=== PATIENT | male | born 1960 | race Caucasian/White ===

== ENCOUNTER → 2018-11-21 13:27 | Outpatient (CLI) | payer BC | END | disposition home or self-care (01) | LOC: D.CT 11-16 15:00 | DX: R93.89 Abnormal findings on diagnostic imaging of other specified body structures (principal) ==

== ENCOUNTER → 2020-04-20 19:23 | Outpatient (CLI) | payer BC | END | disposition home or self-care (01) | LOC: D.LABREF 19:23 | PROVIDERS: ATTEND Orthopaedic Surgery | DX: M17.11 Unilateral primary osteoarthritis, right knee (principal) ==

== ENCOUNTER 2020-04-21 16:36 | Inpatient (IN) | payer BC ==
[~2020-04-21] VITALS: Ht 193 cm; Wt 127.3 kg
[2020-05-05] MEDS ORDERED: LISINOPRIL20 MG PO (10:54)
[2020-05-05] MEDS ORDERED: TIROSINT137 MCG PO (10:54)
[2020-05-05] MEDS ORDERED: ULTRAM50 MG PO (10:55)
[2020-05-05] MEDS ORDERED: NORVASC5 MG PO (10:55)
[2020-05-05] MEDS ORDERED: ZYRTEC D PO (10:55)
[2020-05-05] MEDS ORDERED: MOBIC7.5 MG PO (10:56)
[2020-05-06 09:13] LABS: CALCIUM 9.4 mg/dL (8.5-10.1); CARBON DIOXIDE 31.2 mmol/L (21.0-32.0); CREATININE - SERUM 1.2 mg/dL (0.6-1.3); POTASSIUM - SERUM 4.2 mmol/L (3.5-5.1)
[2020-05-06 09:19] LABS: APTT 25.7 SECONDS (22.8-39.4); INR 0.91 (0.85-1.17); PROTIME 12.3 SECONDS (11.6-15.0)
[2020-05-06 09:34] LABS: BILIRUBIN NEGATIVE (NEGATIVE); GLUCOSE NEGATIVE (NEGATIVE); KETONE NEGATIVE (NEGATIVE); NITRITE NEGATIVE (NEGATIVE); UROBILINOGEN NORMAL (NORMAL)
[2020-05-06 09:35] LABS: BASOPHILS 0.6 % (0-2); EOSINOPHILS 5.8 % (0-7); HEMATOCRIT 44.1 % (42.0-54.0); HEMOGLOBIN 14.6 g/dL (13.5-17.5); IMMATURE GRANULOCYTES 0.3 % (0-5); LYMPHOCYTES 19.5 % (15-50); MCH 29.6 pg (26.0-34.0); MCHC 33.1 g/dL (31.0-37.0); MCV 89.5 fL (80.0-100.0); MEAN PLATELET VOLUME 8.9 fL (7.4-10.4); MONOCYTES 7.9 % (2-11); NEUTROPHILS 65.9 % (40-80); PLATELET COUNT 295 10x3/uL (130-400); RBC 4.93 10x6/uL (4.20-6.10); RDW 13.8 % (11.5-14.5); WBC 9.5 10x3/uL (4.8-10.8)
[2020-05-12] VITALS (11 sets, daily range): BP systolic 116–144; BP diastolic 65–87; Ht 193 cm; Wt 127.3 kg
[2020-05-12] MEDS ORDERED: PRILOSEC (07:44)
--- NOTE | 2020-05-12 09:30 | NUR ---
0910-HIBICLENSE/ALCOHOL PREP PRIOR TO CHLORAPREP
--- NOTE | 2020-05-12 12:35 | NUR ---
RECEIVED TO ROOM 1209 VIA BED FROM PACU. A/O X3. C/O PAIN TO RIGHT KNEE LEVEL 10. WILL MONITOR. SKIN INTACT WITHOUT REDNESS EXCEPT INCISION TO RIGHT KNEE WHICH HAS A DRY INTACT DRESSING IN PLACE. VSS. ROUSES EASILY TO VERBAL STIMULATION.
--- NOTE | 2020-05-12 13:20 | NUR ---
CONTINUES TO C/O OF INTENSE PAIN LEVEL 10. GIVEN 15MG TORADOL SLOW IVP FOR SAME. WILL MONITOR.
--- NOTE | 2020-05-12 13:45 | NUR ---
UP WITH PT. NO C/O INCREASED PAIN WITH ACTIVITY.
--- NOTE | 2020-05-12 15:40 | NUR ---
RESTING QUIETLY WITH EYES CLOSED. VSS.
--- NOTE | 2020-05-12 18:00 | NUR ---
UP TO BR WITH ONE PERSON MIN ASSIST. VOIDED CLEAR YELLOW URINE, APPROX 300CC. REPOSITIONED IN BED FOR COMFORT. CPM IN PLACE TO RIGHT KNEE. NO CHANGES NOTED. GIVEN 10MG OXY WITH 50MG VISTARIL PO FOR PAIN MANAGEMENT WHILE ON CPM.
--- NOTE | 2020-05-12 19:05 | NUR ---
PATIENT RESTING IN BED WITH NO S/S OF DISTRESS. GUEST AT BEDSIDE. PATIENT DENIES NEEDS AT THIS TIME. BED IN LOWEST POSITION AND CALL LIGHT WITHIN REACH. ENCOURAGED THE PATIENT TO CALL IF HE HAS NEEDS. WILL CONTINUE TO MONITOR.
--- NOTE | 2020-05-12 20:51 | NUR ---
ADMINISTERED MEDS PER ORDERS. PATIENT DENIES NEEDS. ENCOURGED PATIENT TO CALL. WILL CONTINUE TO MONITOR.
--- NOTE | 2020-05-12 21:25 | NUR ---
TOOK PATIENT OFF CPM MACHINE
--- NOTE | 2020-05-12 22:00 | NUR ---
ASSISTED PATIENT TO AND FROM RESTROOM. PATIENT VOIDED AND DENIES FURTHER NEEDS.
[2020-05-13 00:09] VITALS: BP 125/66
--- NOTE | 2020-05-13 01:45 | NUR ---
ASSISTED PATIENT TO AND FROM RESTROOM.
[2020-05-13 04:21] VITALS: BP 137/78
--- NOTE | 2020-05-13 04:50 | NUR ---
PLACED PATIENT ON CPM TO RIGHT KNEE
--- NOTE | 2020-05-13 07:15 | NUR ---
PT SLEEPING, AROUSED EASILY TO VOICE, DENIES NEEDS, BED LOWEST POSITION, CALL LIGHT IN REACH, BREATHING EVEN UNLABORED, LUNGS CTA, A&O X3, PEDAL PULSES BILATERALLY PALPABLE, HELPED PT TO BATHROOM WITH WALKER, STANDBY ASSIST ONLY. WILL CONTINUE TO MONITOR.
[2020-05-13 07:19] LABS: HEMATOCRIT 38.2 % (42.0-54.0); HEMOGLOBIN 12.3 g/dL (13.5-17.5); MCH 29.1 pg (26.0-34.0); MCHC 32.2 g/dL (31.0-37.0); MCV 90.5 fL (80.0-100.0); MEAN PLATELET VOLUME 9.1 fL (7.4-10.4); RBC 4.22 10x6/uL (4.20-6.10); RDW 13.8 % (11.5-14.5); WBC 13.5 10x3/uL (4.8-10.8)
[2020-05-13 08:17] VITALS: BP 134/66
--- NOTE | 2020-05-13 09:04 | MORECARE ---
CASE MANAGEMENT DISCHARGE SUMMARY PATIENT: CHRISTIANO TAYLOR UNIT: [id number] ADM DATE: 05/12/20 AGE: 60 : 56 SEX: M ROOM/BED: D.1209 AUTHOR: JOSIAS COELLO PHYSICIAN: REFERRING PHYSICIAN: JEFFRY BLANK DO DATE OF SERVICE: 05/13/20 Discharge Plan Patient Name: CHRISTIANO TAYLOR [facility] [facility] 1960 Planned Disposition: Home or Self Care Anticipated Discharge Date: Discharge Date: Expected LOS: Initial Reviewer: [email or web address] Initial Review Date: 05/12/2020 Generated: 05/13/20 10:04 am DCPIA - Discharge Planning Initial Assessment Updated by [email or web address]: Amita Mares on 05/13/20 9:02 am * Is the patient Alert and Oriented? Yes * How many steps to enter\exit or inside your home? * [facility] * [facility]acy [facility] * Preadmission Environment Home with Family * ADLs Independent * Equipment None * List name and contact numbers for known caregivers / representatives who currently or will assist patient after discharge: CLAUDE (SPOUSE) [phone] * Verbal permission to speak to the caregivers and representatives has been obtained from the patient. N/A * Community resources currently utilized None * Additional services required to return to the preadmission environment? Yes * Can the patient safely return to the preadmission environment? Yes * Has this patient been hospitalized within the prior 30 days at any hospital? No Patient Name: CHRISTIANO TAYLOR Page 60421 at 0904 All edits/amendments must be made on the electronic document DICTATION DATE: 05/13/20903 LAYER UP: LIAM 05/13/20903 RPT#: [id number] DC DATE: STATUS: ADM IN [facility] [address] [place] [address] END OF REPORT
--- NOTE | 2020-05-13 09:11 | MORECARE ---
CASE MANAGEMENT DISCHARGE SUMMARY PATIENT: CHRISTIANO TAYLOR UNIT: [id number] ADM DATE: 05/12/20 AGE: 60 : 56 SEX: M ROOM/BED: D.1209 AUTHOR: JOSIAS COELLO PHYSICIAN: REFERRING PHYSICIAN: JEFFRY BLANK DO DATE OF SERVICE: 05/13/20 Discharge Plan Patient Name: CHRISTIANO TAYLOR Facility: [facility]:[place] : 1960 Planned Disposition: Home or Self Care Anticipated Discharge Date: Discharge Date: Expected LOS: Initial Reviewer: [email or web address] Initial Review Date: 05/12/2020 Generated: 05/13/20 10:11 am Comments DCP- Discharge Planning Updated by [email or web address]: Amita Mares on 05/13/20 8:[address] Barry with [employer], has his DME order and will deliver DME to patient prior to DC DCP- Discharge Planning Updated by [email or web address]: Amita Mares on 05/13/20 8:[address] Patient Name: CHRISTIANO TAYLOR Admission Status: Elective Accout number: [id number] Admission Date: 05-12-2020 : 1960 Admission Diagnosis: Attending: JEFFRY BLANK Current LOS: 1 Anticipated DC Date: Planned Disposition: Home or Self Care Primary Insurance: [email or web address] [facility] EXCHANGE Discharge Planning Comments: CM met with patient to complete initial dc planning assessment. CM educated patient on the CM role and verbal consent given by patient to complete assessment. Patient lives at home with his spouse where he is independent with his care. At discharge patient plans to return home and feels this is a safe discharge. CM discussed availability of home health, rehab services, and medical equipment. He does use a CPAP, but orders all his supplies online. He would like to do his OP PT at [facility], CM will set that appointment prior to discharge. He does not have any DME, but stated that someone called him about delivering his DME after surgery. I will check with Barry with [employer] to see if he has the DME order. Patient denied known discharge needs at this time. CM will continue to follow and will assist as needed with dc plans/needs. Education Faculty Member: Amita Mares DCPIA - Discharge Planning Initial Assessment Updated by [email or web address]: Amita Mares on 05/13/20 9:02 am * Is the patient Alert and Oriented? Yes * How many steps to enter\exit or inside your home? * [facility]CP [facility] * [facility] * Preadmission Environment Home with Family * ADLs Independent * Equipment None * List name and contact numbers for known caregivers / representatives who currently or will assist patient after discharge: CLAUDE (SPOUSE) [phone] * Verbal permission to speak to the caregivers and representatives has been obtained from the patient. N/A * Community resources currently utilized None * Additional services required to return to the preadmission environment? Yes * Can the patient safely return to the preadmission environment? Yes * Has this patient been hospitalized within the prior 30 days at any hospital? No Last DP export: 05/13/20 8:04 am Patient Name: CHRISTIANO TAYLOR Page 29471 at 0911 All edits/amendments must be made on the electronic document DICTATION DATE: 05/13/20910 HEAT TREAT FURNACE OPERATOR: LIAM 05/13/20910 RPT#: [id number] DC DATE: STATUS: ADM IN [facility] [address] [place] [address] END OF REPORT
--- NOTE | 2020-05-13 10:05 | NUR ---
STANDBY ASSIST TO BATHROOM AND BACK TO BED
--- NOTE | 2020-05-13 10:44 | MORECARE ---
CASE MANAGEMENT DISCHARGE SUMMARY PATIENT: CHRISTIANO TAYLOR UNIT: [id number] ADM DATE: 05/12/20 AGE: 60 : 56 SEX: M ROOM/BED: D.1209 AUTHOR: MODEDOC PHYSICIAN: REFERRING PHYSICIAN: JEFFRY BLANK DO DATE OF SERVICE: 05/13/20 Discharge Plan Patient Name: CHRISTIANO TAYLOR Facility: [facility]:[place] : 1960 Planned Disposition: Home or Self Care Anticipated Discharge Date: Discharge Date: Expected LOS: Initial Reviewer: [email or web address] Initial Review Date: 05/12/2020 Generated: 05/13/20 11:43 am Comments DCP- Discharge Planning Updated by [email or web address]: Amita Mares on 05/13/20 9:[address] SPOKE WITH KAVYA AND THE PATIENT HAS AN APPOINTMENT SET FOR MondayMay AT 1:30. HE WILL GET A COPY OF THIS ORDER WITH HIS DISCHARGE PACKET DCP- Discharge Planning Updated by [email or web address]: Amita Mares on 05/13/20 8:[address] Barry with [employer], has his DME order and will deliver DME to patient prior to DC DCP- Discharge Planning Updated by [id number]: Amita Mares on 05/13/20 8:[address] Patient Name: CHRISTIANO TAYLOR Admission Status: Elective Accout number: [id number] Admission Date: 05-12-2020 : 1960 Admission Diagnosis: Attending: JEFFRY BLANK Current LOS: 1 Anticipated DC Date: Planned Disposition: Home or Self Care Primary Insurance: [employer] TH EXCHANGE Discharge Planning Comments: CM met with patient to complete initial dc planning assessment. CM educated patient on the CM role and verbal consent given by patient to complete assessment. Patient lives at home with his spouse where he is independent with his care. At discharge patient plans to return home and feels this is a safe discharge. CM discussed availability of home health, rehab services, and medical equipment. He does use a CPAP, but orders all his supplies online. He would like to do his OP PT at [facility], CM will set that appointment prior to discharge. He does not have any DME, but stated that someone called him about delivering his DME after surgery. I will check with Barry with [employer] to see if he has the DME order. Patient denied known discharge needs at this time. CM will continue to follow and will assist as needed with dc plans/needs. Communication Lecturer: Amita Mares DCPIA - Discharge Planning Initial Assessment Updated by [email or web address]: Amita Mares on 05/13/20 9:02 am * Is the patient Alert and Oriented? Yes * How many steps to enter\exit or inside your home? * [facility]CP [facility] * [facility]acy [facility] * Preadmission Environment Home with Family * ADLs Independent * Equipment None * List name and contact numbers for known caregivers / representatives who currently or will assist patient after discharge: CLAUDE (SPOUSE) [phone] * Verbal permission to speak to the caregivers and representatives has been obtained from the patient. N/A * Community resources currently utilized None * Additional services required to return to the preadmission environment? Yes * Can the patient safely return to the preadmission environment? Yes * Has this patient been hospitalized within the prior 30 days at any hospital? No Last DP export: 05/13/20 8:11 am Patient Name: CHRISTIANO TAYLOR Page 24008 at 1044 All edits/amendments must be made on the electronic document DICTATION DATE: 05/13/20 1043 SERVICE PARTS DRIVER: LIAM 05/13/20 1043 RPT#: [id number] DC DATE: STATUS: ADM IN [facility] [address] [place] [address] END OF REPORT
--- NOTE | 2020-05-13 10:44 | OP ---
PATIENT NAME: CHRISTIANO TAYLOR MEDICAL RECORD: [id number] :[birth year] LOCATION:D. D.1209 ADMISSION DATE:05/12/20 SURGEON: DEON BLANK, DATE OF OPERATION: 05/12/2020 PROCEDURE PERFORMED: Right total knee arthroplasty. PREOPERATIVE DIAGNOSIS: Right knee osteoarthritis. POSTOPERATIVE DIAGNOSIS: Right knee osteoarthritis. INDICATIONS: Mr. Taylor is a 60-year-old male who has had right knee pain for quite some time. He has been dealing with it and trying all manner of nonoperative treatment including injections, physical therapy to no avail and is up to the point where it is affecting his activities of daily living. He cannot do things he like to do and he wants something to be done surgically. I informed him of the risks including infection, bleeding, damage to nerves or vessels, failure of hardware, continued pain, arthrofibrosis, blood clots, fracture, and even and he signed the consent. SURGEON: Deon Blank MD DESCRIPTION OF SURGERY: The patient received a block by anesthesia in preoperative area, was taken to the operative suite, given 80 mg gentamicin and 2 grams of Ancef after a test dose because of his PENICILLIN ALLERGY. He did not have a reaction. He was then sedated and LMA was placed and given a gram of TXA as well. Right lower extremity was then prepped and draped in sterile fashion. A timeout was performed and everyone was in agreement with the correct side, site, patient, and the procedure. We then marked out the incision covered with Ioban. I then made an incision down through the skin to the capsule and then a medial parapatellar approach with a fresh 10 blade scalpel and then everted the patella and milled it down and sized to be 35. I then entered the femoral canal after removing the ACL and did a distal femur cut and then a proximal tibia cut. After doing the proximal tibia cut, I sized the femur to be 12 and put 4-in-1 cutting block on it and cut the femur and then sized the tibia to be a right H and then pinned it in and then trialed with a 10 poly, it fit very well, so I did go with that and then drilled the holes for the stems and then removed the tray and impacted the tibia. After irrigating, impacted the tibia on and the femur on as well. It fit very well and then I put a 10 trial in between and brought the knee in extension. Exposed the patella, cleaned that off and irrigated it and then put the cement after it was mixed and then holes in the patella and then on the implant and squeezed into place. Excess cement was removed. I then poured povidone-iodine 10% with 5 mL of normal saline solution in the knee and let it sit for 3 minutes and irrigated that out with over a liter of normal saline. We then put in the actual poly after irrigating one more time, 10 poly and then ranged the knee, it ranged very well. The medial congruent knee was Persona knee and it was very tight and varus valgus with an extension, flexion, and moved very well. I then put in the Brunilda and vancomycin and tobramycin powder. I then closed the capsule with #1 Vicryl in a uaoiww-tj-zaeey fashion. This was done by myself, William Levine, and Kevyn Jesus. Kevyn is a certified surgical first helper and William is first year student. I then finished closing the capsule with #1 Vicryl in a uryysx-dj-xlwzv fashion with #1 pop-offs and then the skin with 2-0 Vicryl in inverted interrupted fashion and then ZipLine placed on the knee, then dressed with Adaptic, 4 x 4s, ABD, Webril, Forest wrap, and HODA hose stocking. He was then OPERATIVE REPORT [id number] CHRISTIANO TAYLOR awakened and taken to recovery in stable condition. Blood loss approximately 200 mL. COMPLICATIONS: None. TRANSINT:[id number] Voice Confirmation ID: [id number] DOCUMENT ID: [id number] DEON BLANK DO at 1044 CC: [id number] DICTATION DATE: 05/12/20 1343 ALUM MIXER: 05/13/[address] [facility] [address] [place] [address]
[2020-05-13] MEDS ORDERED: ELIQUIS2.5 MG PO (12:03)
[2020-05-13] MEDS ORDERED: oxyCODONE IR PO (12:03)
[2020-05-13] MEDS ORDERED: VISTARIL50 MG PO (12:04)
--- NOTE | 2020-05-13 13:31 | NUR ---
DISHARGE INSTRUCTIONS AND PRESCRIPTIONS GIVEN TO PT AND , FOLLOW UP APPOINTMENTS, IV REMOVED FROM RFA CATHETER INTACT, RIGHT KNEE BANDAGE CLEANED WITH WOUND DAT[employer]AS[employer] SOFTWARE CONSULTANT, BANDAGE REAPPLIED AND WRAP WITH SAGE WRAP. QUESTIONS ANSWERED, DISCHARGED IN WC.
--- NOTE | 2020-05-14 16:11 | MORECARE ---
CASE MANAGEMENT DISCHARGE SUMMARY PATIENT: CHRISTIANO TAYLOR UNIT: [id number] ADM DATE: 05/12/20 AGE: 60 : 56 SEX: M ROOM/BED: D.1209 AUTHOR: MODE,DOC PHYSICIAN: REFERRING PHYSICIAN: JEFFRY BLANK DO DATE OF SERVICE: 05/14/20 Discharge Plan Patient Name: CHRISTIANO TAYLOR Facility: [facility]:[place] : 1960 Planned Disposition: Home or Self Care Anticipated Discharge Date: Discharge Date: 05/13/2020 Expected LOS: Initial Reviewer: [email or web address] Initial Review Date: 05/12/2020 Generated: 05/14/20 5:11 pm Comments DCP- Discharge Planning Updated by [id number]: Amita Mares on 05/13/20 9:[address] SPOKE WITH KAVYA AND THE PATIENT HAS AN APPOINTMENT SET FOR MondayMay AT 1:30. HE WILL GET A COPY OF THIS ORDER WITH HIS DISCHARGE PACKET DCP- Discharge Planning Updated by [email or web address]: Amita Mares on 05/13/20 8:[address] Barry with [employer], has his DME order and will deliver DME to patient prior to DC DCP- Discharge Planning Updated by [email or web address]: Amita Mares on 05/13/20 8:[address] Patient Name: CHRISTIANO TAYLOR Admission Status: Elective Accout number: [id number] Admission Date: 05-12-2020 : 1960 Admission Diagnosis: Attending: JEFFRY BLANK Current LOS: 1 Anticipated DC Date: Planned Disposition: Home or Self Care Primary Insurance: [employer] EXCH[employer] Discharge Planning Comments: CM met with patient to complete initial dc planning assessment. CM educated patient on the CM role and verbal consent given by patient to complete assessment. Patient lives at home with his spouse where he is independent with his care. At discharge patient plans to return home and feels this is a safe discharge. CM discussed availability of home health, rehab services, and medical equipment. He does use a CPAP, but orders all his supplies online. He would like to do his OP PT at [facility], CM will set that appointment prior to discharge. He does not have any DME, but stated that someone called him about delivering his DME after surgery. I will check with Barry with [employer] to see if he has the DME order. Patient denied known discharge needs at this time. CM will continue to follow and will assist as needed with dc plans/needs. Auto Servicer: Amita Mares DCPIA - Discharge Planning Initial Assessment Updated by [email or web address]: Amita Mares on 05/13/20 9:02 am * Is the patient Alert and Oriented? Yes * How many steps to enter\exit or inside your home? * [facility]CP [facility] * Pharmacy [facility] * Preadmission Environment Home with Family * ADLs Independent * Equipment None * List name and contact numbers for known caregivers / representatives who currently or will assist patient after discharge: CLAUDE (SPOUSE) [phone] * Verbal permission to speak to the caregivers and representatives has been obtained from the patient. N/A * Community resources currently utilized None * Additional services required to return to the preadmission environment? Yes * Can the patient safely return to the preadmission environment? Yes * Has this patient been hospitalized within the prior 30 days at any hospital? No Last DP export: 05/13/20 9:44 am Patient Name: CHRISTIANO TAYLOR Page 40674 at 1611 All edits/amendments must be made on the electronic document DICTATION DATE: 05/14/201610 MANAGER ETHICS: LIAM 05/14/20 161 RPT#: [id number] DC DATE:05/13/20 STATUS: DIS IN [facility] [address] [place] [address] END OF REPORT
== END 2020-05-13 13:42 | disposition home or self-care (01) | DRG 470 ==
LOC: D.SDCHOLD 05-06 10:00 → D.M3 05-12 06:37 → D.SDCHOLD 05-12 07:00 → D.M3 05-12 12:33
PROVIDERS: ADMIT Orthopaedic Surgery; ATTEND Orthopaedic Surgery
PROC: 0SRC0J9 Replacement of Right Knee Joint with Synthetic Substitute, Cemented, Open Approach (ICD-10-PCS; principal; 2020-05-12 08:30)
DX: M17.11 Unilateral primary osteoarthritis, right knee (principal); I10 Essential (primary) hypertension; E03.9 Hypothyroidism, unspecified; K21.9 Gastro-esophageal reflux disease without esophagitis; G47.33 Obstructive sleep apnea (adult) (pediatric); G89.29 Other chronic pain; M54.9 Dorsalgia, unspecified; Z87.891 Personal history of nicotine dependence

== ENCOUNTER → 2020-06-10 22:48 | Outpatient (CLI) | payer BC ==
[2020-05-12 12:43] VITALS: BMI 34.1
[~2020-06-10 22:48] MED LIST: ELIQUIS2.5 MG PO; LISINOPRIL20 MG PO; MOBIC7.5 MG PO; NORVASC5 MG PO; PRILOSEC; TIROSINT137 MCG PO; ULTRAM50 MG PO; VISTARIL50 MG PO; ZYRTEC D PO; oxyCODONE IR PO
[2020-06-11 09:25] LABS: BASOPHILS 0.6 % (0-2); EOSINOPHILS 4.6 % (0-7); HEMATOCRIT 43.8 % (42.0-54.0); HEMOGLOBIN 13.6 g/dL (13.5-17.5); IMMATURE GRANULOCYTES 0.2 % (0-5); LYMPHOCYTES 17.4 % (15-50); MCH 29.1 pg (26.0-34.0); MCHC 31.1 g/dL (31.0-37.0); MCV 93.8 fL (80.0-100.0); MEAN PLATELET VOLUME 9.1 fL (7.4-10.4); MONOCYTES 8.2 % (2-11); PLATELET COUNT 381 10x3/uL (130-400); RBC 4.67 10x6/uL (4.20-6.10); RDW 14.5 % (11.5-14.5); WBC 8.7 10x3/uL (4.8-10.8)
[2020-06-11 10:28] LABS: ERYTHROCYTE SEDIMENTATION RATE 4 mm/hr (0-20)
== END | disposition home or self-care (01) ==
LOC: D.LABREF 22:48
PROVIDERS: ATTEND Nurse Practitioner Family
DX: M25.561 Pain in right knee (principal)

== ENCOUNTER → 2020-06-11 08:51 | Outpatient (CLI) | payer BC ==
[2020-05-12 12:43] VITALS: BMI 34.1
== END | disposition home or self-care (01) ==
LOC: D.LABREF 08:51
PROVIDERS: ATTEND Orthopaedic Surgery
DX: M25.561 Pain in right knee (principal)

== ENCOUNTER → 2020-08-17 20:56 | Outpatient (CLI) | payer BC ==
[2020-05-12 12:43] VITALS: BMI 34.1
== END | disposition home or self-care (01) ==
LOC: D.LABREF 20:56
PROVIDERS: ATTEND Orthopaedic Surgery
DX: M17.12 Unilateral primary osteoarthritis, left knee (principal)